=== PATIENT | male | born 1960 | race Caucasian/White ===

== ENCOUNTER 2018-04-13 00:57 | Emergency (ER) | payer BC ==
[~2018-04-13] VITALS: Ht 175.3 cm; Wt 63.2 kg
[2018-04-13] MEDS ORDERED: OMEP20CA3 PO (01:05)
[2018-04-13] MEDS ORDERED: ECOT325T5 PO (01:05)
[2018-04-13] MEDS ORDERED: METO1TAB32 PO (01:05)
[2018-04-13] MEDS ORDERED: SIMV80TA13 PO (01:05)
[2018-04-13] MEDS ORDERED: LISI-538 PO (01:05)
[2018-04-13 01:38] LABS: BASO # 0.1 10^3/uL (0.0-0.2); BASO % 1.2 % (0.0-1.0); EOS # 0.1 10^3/uL (0.0-0.50); EOS % 1.5 % (0.0-3.0); HEMATOCRIT 38.8 % (42.0-52.0); HEMOGLOBIN 14.1 g/dl (13.5-17.5); LYMPH % 38.9 % (24.0-44.0); MEAN CORPUSCULAR HEMOGLOBIN 32.7 pg (27.0-33.0); MEAN CORPUSCULAR HGB CONC 36.3 g/dl (32.0-36.5); MONO # 0.6 10^3/uL (0.0-0.8); MONO % 11.6 % (0.0-5.0); NEUTROPHILS # 2.4 10^3/uL (1.8-7.7); NEUTROPHILS % 46.6 % (36.0-66.0); PLATELET COUNT, AUTOMATED 192 10^3/uL (150-450); RED BLOOD COUNT 4.31 10^6/uL (4.30-6.10); WHITE BLOOD COUNT 5.2 10^3/uL (4.0-10.0)
[2018-04-13 01:57] LABS: BLOOD UREA NITROGEN 11 MG/DL (7-18); CALCIUM LEVEL 9.7 MG/DL (8.5-10.1); CARBON DIOXIDE LEVEL 26 MEQ/L (21-32); CHLORIDE LEVEL 94 MEQ/L (98-107); CPK CREATINE PHOSPHOKINASE 67 U/L (39-308); CREATININE FOR GFR 0.88 MG/DL (0.70-1.30); ETHYL ALCOHOL (ETHANOL) 0.036 % (0.000-0.010); FREE THYROXINE INDEX 2.7 % (1.4-3.8); GLOMERULAR FILTRATION RATE > 60.0 (>56); GLUCOSE, FASTING 93 MG/DL (70-100); MB/CK RELATIVE INDEX 2.54 (< OR =4); POTASSIUM SERUM 3.6 MEQ/L (3.5-5.1); SODIUM LEVEL 130 MEQ/L (136-145); T UPTAKE 34 % (33-40); THYROXINE (T4) 7.9 UG/DL (4.5-12.0); TROPONIN I < 0.02 NG/ML (< 0.10)
--- NOTE | 2018-04-13 02:15 | REPVR ---
EXAM: CT Head Without Contrast EXAM DATE/TIME: 04/13/2018 1:28 AM CLINICAL HISTORY: 58 years old, male; Signs and symptoms; Altered mental status/memory loss; Confusion or disorientation; Additional info: AMS TECHNIQUE: Axial computed tomography images of the head/brain without contrast. All CT scans at this facility use at least one of these dose optimization techniques: automated exposure control; mA and/or kV adjustment per patient size (includes targeted exams where dose is matched to clinical indication); or iterative reconstruction. Technologist notes: Facility exam id and description: [facility] CT head without contrast COMPARISON: No relevant prior studies available. FINDINGS: Brain: Normal. No hemorrhage. No significant white matter disease. No edema. Ventricles: Normal. No ventriculomegaly. Bones/joints: Unremarkable. No acute fracture. Sinuses: Visualized sinuses are unremarkable. No acute sinusitis. Mastoid air cells: Visualized mastoid air cells are unremarkable. No mastoid effusion. Soft tissues: Unremarkable. IMPRESSION: Negative noncontrast head CT. Electronically signed by: Onesimo Levi On 04/13/2018 02:15:19 AM
[2018-04-13] MEDS ORDERED: CENTCHW3 PO (02:19)
[2018-04-13 02:28] LABS: INFLUENZA A AMPLIFICATION NEGATIVE (NEGATIVE); INFLUENZA B AMPLIFICATION NEGATIVE (NEGATIVE)
[2018-04-13] MEDS ORDERED: MULTIVITAMIN -ADULT INJECTION 10 ML, THIAMINE INJection 100 MG, FOLIC ACID 1 MG in NS 1... IV ONE (02:30)
[2018-04-13] MEDS ORDERED: NS 1,000 ML IV ONE ×2 (02:30→04:30)
[2018-04-13] MEDS ORDERED: ACETAMINOPHEN 325 MG TAB PO ONE ×2 (03:15)
[2018-04-13 03:59] LABS: AMPHETAMINES LEVEL URINE NEGATIVE (NEGATIVE); BARBITURATES URINE NEGATIVE (NEGATIVE); BENZODIAZEPINES URINE NEGATIVE (NEGATIVE); CANNABINOIDS URINE NEGATIVE (NEGATIVE); COCAINE METABOLITE URINE NEGATIVE (NEGATIVE); METHADONE URINE NEGATIVE (NEGATIVE); OPIATES URINE NEGATIVE (NEGATIVE); PHENCYCLIDINE URINE NEGATIVE (NEGATIVE)
[2018-04-13 05:30] VITALS: BP 103/64
--- NOTE | 2018-04-14 07:42 | ECGEPIP ---
Stationary ECG Study [facility] - ED Test Date: 2018-04-13 Pat Name: GURINDER GEORGE Department: Room: - Gender: M Cancer Spec: : 1960 Requested By: STACEY CHAVEZ Order Number: [id number] Reading MD: Mike Dominguez Measurements Intervals [place] Rate: 110 P: 51 WV: 161 QRS: -1 QRSD: 117 T: 101 QT: 348 QTc: 472 Interpretive Statements SINUS TACHYCARDIA WITH OCCASIONAL VENTRICULAR PREMATURE COMPLEXES INFERIOR MYOCARDIAL INFARCTION, OF INDETERMINATE AGE ST DEPRESSION, CONSIDER SUBENDOCARDIAL INJURY BASELINE ARTIFACT AFFECTS INTERPRETATION NO PRIORS FOR COMPARISON Electronically Signed On 04-14-2018 7:42:28 EST by Mike Dominguez
== END 2018-04-13 05:56 | disposition home or self-care (01) ==
LOC: M ED 00:57
DX: E86.0 Dehydration (principal); F10.20 Alcohol dependence, uncomplicated; E87.1 Hypo-osmolality and hyponatremia; I10 Essential (primary) hypertension; I25.10 Atherosclerotic heart disease of native coronary artery without angina pectoris; K21.9 Gastro-esophageal reflux disease without esophagitis; Z79.899 Other long term (current) drug therapy; Z79.82 Long term (current) use of aspirin; Z87.891 Personal history of nicotine dependence
CPT/HCPCS: 36415; 70450; 80048; 80307; 82550; 82553; 83605; 84436; 84443; 84479; 84484; 85025; 87040; 87502; 93005; 96361; 96365; 99284; G0480; J3411

== ENCOUNTER → 2019-05-17 | Outpatient (CLI) | payer BC ==
[~2019-05-17] MED LIST: CENTCHW3 PO; ECOT325T5 PO; LISI-538 PO; METO1TAB32 PO; OMEP1CAP73 PO; SIMV80TA13 PO
[2019-05-17 19:57] LABS: ALBUMIN 3.9 GM/DL (3.2-5.2); ALT/SGPT 29 U/L (12-78); BILIRUBIN,TOTAL 0.8 MG/DL (0.2-1.0); BLOOD UREA NITROGEN 17 MG/DL (7-18); CALCIUM LEVEL 9.3 MG/DL (8.8-10.2); CARBON DIOXIDE LEVEL 28 MEQ/L (21-32); CHLORIDE LEVEL 107 MEQ/L (98-107); CHOLESTEROL LEVEL 108 MG/DL (<200); CHOLESTEROL RISK RATIO 1.687 (<5); CREATININE FOR GFR 0.86 MG/DL (0.70-1.30); GLOMERULAR FILTRATION RATE > 60.0 (>49); GLUCOSE, FASTING 69 MG/DL (70-100); HDL CHOLESTEROL 64 MG/DL (>40); LDL CHOLESTEROL 38 MG/DL (<100); NON-HDL-C 44 MG/DL; POTASSIUM SERUM 4.3 MEQ/L (3.5-5.1); SODIUM LEVEL 141 MEQ/L (136-145); TOTAL PROTEIN 6.8 GM/DL (6.4-8.2); TRIGLYCERIDES LEVEL 30 MG/DL (<150)
== END ==
LOC: M LRY 15:58
PROVIDERS: ATTEND Nurse Practitioner Family
DX: E78.2 Mixed hyperlipidemia (principal); I10 Essential (primary) hypertension

== ENCOUNTER → 2020-08-12 | Outpatient (CLI) | payer BC ==
[~2020-08-12] MED LIST changes: +CENT1TAB PO; +FLAX1CAP5 PO; -LISI-538 PO; +LISI10TA22 PO; +LISI20TA33 PO; +ZOCO80TA PO
--- NOTE | 2020-08-12 15:07 | REP ---
INDICATION: SOB R/O CHF. COMPARISON: None. TECHNIQUE: PA and lateral FINDINGS: The cardiomediastinal silhouette is within normal limits. Note is made of previous median sternotomy. There is bilateral CP angle blunting. The lung carrington are otherwise clear. IMPRESSION: Bilateral CP angle blunting. There are no recent priors for comparison. Small pleural effusions cannot be ruled out. Follow-up is recommended. <Electronically signed by Federico Arenas > 08/12/20 [id number]
== END ==
LOC: M RAD 14:48
PROVIDERS: ATTEND Physician Assistant Medical
DX: R06.02 Shortness of breath (principal)

== ENCOUNTER → 2020-08-12 | Outpatient (REF) | payer BC ==
[2020-08-12 15:26] LABS: ALBUMIN 3.8 GM/DL (3.2-5.2); ALT/SGPT 27 U/L (12-78); BILIRUBIN,TOTAL 0.7 MG/DL (0.2-1.0); BLOOD UREA NITROGEN 14 MG/DL (7-18); CALCIUM LEVEL 9.1 MG/DL (8.8-10.2); CARBON DIOXIDE LEVEL 22 MEQ/L (21-32); CHLORIDE LEVEL 110 MEQ/L (98-107); CREATININE FOR GFR 0.91 MG/DL (0.70-1.30); GLOMERULAR FILTRATION RATE > 60.0 (>49); GLUCOSE, FASTING 84 MG/DL (70-100); PHOSPHORUS LEVEL 3.4 MG/DL (2.5-4.9); POTASSIUM SERUM 3.9 MEQ/L (3.5-5.1); SODIUM LEVEL 141 MEQ/L (136-145); TOTAL PROTEIN 6.9 GM/DL (6.4-8.2)
[2020-08-12 16:50] LABS: NT-PRO BNP 3026 PG/ML (<125)
== END ==
LOC: M LAB REF 14:46
PROVIDERS: ATTEND Physician Assistant Medical
DX: R60.9 Edema, unspecified (principal)

== ENCOUNTER → 2020-10-12 | Outpatient (CLI) | payer BC ==
[~2020-10-12] MED LIST changes: +FURO40TA2 PO
== END ==
LOC: M LABSMTC 09:34
PROVIDERS: ATTEND Anesthesiology
DX: Z01.812 Encounter for preprocedural laboratory examination (principal); Z11.52 Encounter for screening for COVID-19

== ENCOUNTER 2020-10-17 06:06 | Day surgery (SDC) | payer BC ==
[~2020-10-17] VITALS: Ht 175.3 cm; Wt 66.7 kg
[~2020-10-17 06:06] MED LIST changes: +LR 1,000 ML IV ONE
[2020-10-17] MEDS ORDERED: LIDOCAINE VISCOUS 2% SOLN 15ML UDC As Ordered ONE (07:14)
[2020-10-17] MEDS ORDERED: CETACAINE SPRAY 5GM As Ordered ONE (07:14)
[2020-10-17] MEDS ORDERED: LIDOCAINE 2% 100MG/5ML SDV (FOR ANES.) As Ordered ONE (07:19)
[2020-10-17] MEDS ORDERED: MIDAZOLAM INJ 2MG/2ML VIAL (J2250 PER 1MG) As Ordered ONE (07:19)
[2020-10-17] MEDS ORDERED: fentaNYL 100 MCG/2 ML INJECTION (J3010) As Ordered ONE (07:19)
[2020-10-17] MEDS ORDERED: propofoL 500 MG/50 ML VIAL As Ordered ONE (07:19)
[2020-10-17 08:50] VITALS: BP 110/66
--- NOTE | 2020-10-17 09:22 | T-ECHO ---
TRANSESOPHAGEAL ECHO DATE: 10/17/2020 REFERRING PHYSICIAN: Kimberlee Zelaya MD. INDICATION: Mitral insufficiency. PROCEDURE: Transesophageal echocardiogram. ANESTHESIOLOGY: Natanael Ellis CRNA. BRIEF HISTORY: Mr. Wang is a very pleasant 60-year-old man who has history of coronary artery disease with history of congestive heart failure and coronary artery bypass grafting. He earlier this year presented with congestive heart failure, and transthoracic echocardiogram was suggestive of possibly severe mitral insufficiency. He improved clinically with medical management, but I decided to bring him for transesophageal echocardiogram for better evaluation of mitral valve. The nature of the procedure and its potential findings were discussed with patient on outpatient basis. He signed appropriate consent. I talked to him about the procedure potential findings and implications earlier today before the procedure, and I answered all his questions. PROCEDURE NOTE: Procedure was performed in the operating room. Patient presented in fasting condition. After appropriate time out was taken and all monitors were applied, patient was positioned in left lateral decubital position. After Anesthesiology administered sedation, probe was introduced into esophagus without difficulty. Unfortunately during the procedure, patient got transiently hypoxemic, most likely as the consequence of over sedation, and I had to remove the tube, but his respirations almost immediately improved, and he was again reintubated with the ARSENIO tube without any difficulty. After remaining images were obtained, it was withdrawn. There were no additional complications during the study, and patient tolerated the procedure well. FINDINGS: Left ventricle is mildly hypokinetic. There is wall motion abnormality principally involving apex and mid and distal anterior wall. I estimate overall EF in the neighbor of 45%. Right ventricle is normal size. Both atria appear normal. Atrial septum is intact based on 2D and color Doppler imaging. There is normal flow in both left-sided and right-sided pulmonary veins. Left atrial appendage is free of visible thrombi. Aortic valve is tricuspid. It has normal mobility, no stenosis and no insufficiency. Same applies for tricuspid valve. There is, if anything, trace tricuspid insufficiency, but the quality of the jet was not sufficient to estimate pulmonary artery pressure. Pulmonic valve also exhibits trace insufficiency. Mitral valve is structurally intact. There is minimal prolapse of posterior mitral leaflet. Based on color Doppler imaging, there is certainly not worse than mild mitral insufficiency. No stenosis of the valve. There is minimal atherosclerosis of thoracic aorta. CONCLUSIONS: 1. Mildly reduced LV systolic function with estimated LVEF in the neighborhood of 45%. 2. Only mild mitral insufficiency. 3. No significant aortic, tricuspid, and pulmonic valvular disease. 4. Intact atrial septum. 5. Normal flow in pulmonary veins. 6. Left atrial appendage free of thrombi. 7. Only minimal atherosclerosis apparently in thoracic aorta. COMMENT: The study does not confirm prior suspicion for severe mitral insufficiency. Patient certainly does not need surgical intervention. Medical management will be continued. I spoke with patient about the results of his test prior to his discharge.
== END 2020-10-17 09:02 | disposition home or self-care (01) ==
LOC: M SDC 06:06
PROVIDERS: ATTEND Internal Medicine Cardiovascular Disease
DX: I34.0 Nonrheumatic mitral (valve) insufficiency (principal); R09.02 Hypoxemia; I50.1 Left ventricular failure, unspecified; I11.0 Hypertensive heart disease with heart failure; I25.2 Old myocardial infarction; Z95.5 Presence of coronary angioplasty implant and graft; E78.5 Hyperlipidemia, unspecified; I25.10 Atherosclerotic heart disease of native coronary artery without angina pectoris; K21.9 Gastro-esophageal reflux disease without esophagitis; Z95.1 Presence of aortocoronary bypass graft; J30.1 Allergic rhinitis due to pollen; Z79.899 Other long term (current) drug therapy; Z79.82 Long term (current) use of aspirin
CPT/HCPCS: 93312; 93320; 93325; J2250; J3010

== ENCOUNTER → 2021-04-24 | Outpatient (CLI) | payer BC ==
[~2021-04-24] MED LIST changes: -LR 1,000 ML IV ONE
== END ==
LOC: M LABSMTC 11:39
PROVIDERS: ATTEND Internal Medicine Cardiovascular Disease
DX: Z11.52 Encounter for screening for COVID-19 (principal)

== ENCOUNTER → 2021-05-26 | Outpatient (CLI) | payer BC ==
[~2021-05-26] MED LIST changes: +CLOP75TA2 PO; +LISI5TAB11 PO
== END ==
LOC: M LABSMTC 10:21
PROVIDERS: ATTEND Anesthesiology
DX: Z01.812 Encounter for preprocedural laboratory examination (principal); Z20.822 Contact with and (suspected) exposure to COVID-19

== ENCOUNTER 2021-05-29 06:08 | Day surgery (SDC) | payer BC ==
[~2021-05-29] VITALS: Ht 175.3 cm; Wt 73.5 kg
[~2021-05-29 06:08] MED LIST changes: +LR 1,000 ML IV ONE
[2021-05-29] MEDS ORDERED: LIDOCAINE VISCOUS 2% SOLN 15ML UDC As Ordered ONE (07:08)
[2021-05-29] MEDS ORDERED: CETACAINE SPRAY 5GM As Ordered ONE (07:08)
[2021-05-29] MEDS ORDERED: ETOMIDATE INJ 20MG/10ML VIAL As Ordered ONE (07:39)
[2021-05-29] MEDS ORDERED: propofoL 200 MG/20 ML VIAL As Ordered ONE (07:39)
[2021-05-29 08:15] VITALS: BP 111/63
== END 2021-05-29 08:20 | disposition home or self-care (01) ==
LOC: M SDC 06:08
PROVIDERS: ATTEND Internal Medicine Cardiovascular Disease
DX: I34.0 Nonrheumatic mitral (valve) insufficiency (principal); I10 Essential (primary) hypertension; I25.2 Old myocardial infarction; E78.5 Hyperlipidemia, unspecified; K21.9 Gastro-esophageal reflux disease without esophagitis; Z98.61 Coronary angioplasty status; Z95.1 Presence of aortocoronary bypass graft; Z87.891 Personal history of nicotine dependence; Z79.02 Long term (current) use of antithrombotics/antiplatelets; Z79.899 Other long term (current) drug therapy